=== PATIENT | female | born 1965 | race Two or more races ===

== ENCOUNTER 2017-03-04 13:09 | Emergency (ER) | payer OTHER ==
[~2017-03-04] VITALS: Ht 157.5 cm; Wt 73.5 kg
[~2017-03-04 13:09] MED LIST: DULO60CA59 PO; FLUT16SP17 NASAL; FLUT1BLS INHALATION; GABA-526 PO; GABA300C16 PO; HYDR-902 PO; HYDR25SU23 PR; LORA1TAB PO; OXYB5TAB7 PO; POLY17PO6 PO
[2017-03-04 13:24] VITALS: Ht 157.5 cm; Wt 73.5 kg
[2017-03-04] MEDS ORDERED: ONDANSETRON (ODT) 4 MG TAB ODT STA (13:51)
[2017-03-04] MEDS ORDERED: NICARDipine HCL 30 MG CAPSULE PO ONE (14:00)
[2017-03-04] MEDS ORDERED: HYDROCODONE/APAP (5/325) TAB PO ONE (14:00)
[2017-03-04 14:32] LABS: ADD UMIC NO; URINE BILIRUBIN (Dip) NEGATIVE (NEGATIVE); URINE BLOOD (Dip) NEGATIVE (NEGATIVE); URINE COLOR LT. YELLOW (YELLOW); URINE GLUCOSE (Dip) NEGATIVE (NEGATIVE); URINE KETONES (Dip) NEGATIVE (NEGATIVE); URINE LEUKOCYTE ESTERASE (Dip) NEGATIVE (NEGATIVE); URINE NITRITE (Dip) NEGATIVE (NEGATIVE); URINE TOTAL PROTEIN (Dip) NEGATIVE (NEGATIVE); URINE UROBILINOGEN (Dip) 0.2 E.U./dL (0.1-1.0)
--- NOTE | 2017-03-04 14:32 | RADRPT ---
PROCEDURE: CT Brain without contrast. CLINICAL INDICATION: Headaches. TECHNIQUE: A CT of the brain was performed on multidetector high-resolution CT scanner utilizing a xial sections from the skull base through the vertex without contrast. One or more of the following dose reduction techniques were used: Automated exposure control, Adjustment of the mA and/or kV acc ording to patient size, and/or use of iterative reconstruction technique. DOSE: CTDI = 44 mGy and the DLP = 630 mGy-cm. COMPARISON: None available FINDINGS: No acute intracranial hemorrhage, significant mass effect or midline shift. The cardoso-white different iation is grossly preserved. The ventricles are normal in size. Mild generalized volume loss. No significant opacification of the visualized paranasal sinuses or mastoids. IMPRESSION: No acute intracranial findings. Mild generalized volume loss. RPTAT: AA .Ziggy Longo MD, MD Date Time Electronically viewed and signed by .Ziggy Longo MD, MD on 03/04/2017 14:31 .T/
[2017-03-04] MEDS ORDERED: ONDANSETRON 4 MG INJ IV STA (15:29)
[2017-03-04] MEDS ORDERED: SOD CHLORIDE 0.9% 1,000 ML IV STA (15:29)
[2017-03-04 15:50] LABS: ADD SCAN DIFF NO
[2017-03-04 15:53] LABS: BASOPHIL # 0.1 10^3/ul (0.0-0.1); BASOPHILS % 0.7 % (0.0-2.0); EOSINOPHILS # 0.2 10^3/ul (0.0-0.5); EOSINOPHILS % 2.7 % (0.0-7.0); HEMOGLOBIN 14.2 g/dl (12.0-16.0); LYMPHOCYTES # 3.3 10^3/ul (0.8-2.9); LYMPHOCYTES % 47.1 % (15.0-51.0); MEAN CORPUSCULAR HEMOGLOBIN 30.1 pg (29.0-33.0); MEAN CORPUSCULAR HGB CONC 33.8 g/dl (32.0-37.0); MEAN CORPUSCULAR VOLUME 89.2 fl (82.0-101.0); MEAN PLATELET VOLUME 9.9 fl (7.4-10.4); MONOCYTE # 0.3 10^3/ul (0.3-0.9); MONOCYTES % 4.9 % (0.0-11.0); NEUTROPHIL # 3.1 10^3/ul (1.6-7.5); NEUTROPHILS % 44.5 % (39.0-77.0); PLATELET COUNT 250 10^3/UL (140-415); RED BLOOD COUNT 4.71 10^6/ul (4.20-5.40); RED CELL DISTRIBUTION WIDTH 12.7 % (11.5-14.5)
[2017-03-04 16:12] LABS: BILIRUBIN,INDIRECT 0.5 mg/dl (0-1.1); BILIRUBIN,TOTAL 0.5 mg/dl (0.2-1.3); CALCIUM 9.8 mg/dl (8.4-10.2); CREATININE 0.68 mg/dl (0.44-1.00); POTASSIUM 3.7 mmol/L (3.5-5.1); TOTAL PROTEIN 7.5 g/dl (6.1-8.1)
[2017-03-04] MEDS ORDERED: ONDA8TAB14 PO (16:40)
[2017-03-04] MEDS ORDERED: HYD25 PO (16:40)
--- NOTE | 2017-03-04 16:44 | ERD ---
ER Documentation Chief Complaint Date/Time DATE: 03/04/17 TIME: 16:41 Chief Complaint Complains of headache x 2 days HPI This 51-year-old female complains of a generalized headache for last 2 days. She is states that her blood pressures been high as well. She denies any visual changes, weakness, vomiting although she does have nausea. She denies any bowel or bladder incontinence or chest pain or shortness of breath. ROS All systems reviewed and are negative except as per history of present illness. Medications Home Meds Active Scripts Hydrochlorothiazide* (Hydrochlorothiazide*) 25 Mg Tab, 25 MG PO DAILY, #30 TAB Prov:LUIS FELIPE SCHULZ MD 03/04/17 Ondansetron (Ondansetron Odt) 8 Mg Tab.rapdis, 8 MG PO Q6H Y for NAUSEA AND/OR VOMITING, #8 TAB Prov:LUIS FELIPE SCHULZ MD 03/04/17 Hydrocortisone Acetate (Anusol-Hc) 25 Mg Supp.rect, 1 SUPP NM BID Y for HEMORROID PAIN/ITCHING, #20 SUPP.RECT Prov:ANIA HENSLEY DO 08/04/16 Hydrocodone/Acetaminophen ([place] 10-325 Tablet) 1 Each Tablet, 1 TAB PO Q6H Y for PAIN, #20 TAB Prov:ANIA HENSLEY DO 08/04/16 Polyethylene Glycol* (Miralax*) 17 Gm Powd.pack, 17 GM PO DAILY, #30 PACKET Prov:ANIA HENSLEY DO 08/04/16 Reported Medications Oxybutynin Chloride* (Ditropan*) 5 Mg Tab, 5 MG PO TID, TAB 08/04/16 Fluticasone Propionate* (Fluticasone Propionate* Nasal) 50 Mcg/Henry - 16 Gm Henry.susp, 1 SPRAY NASAL BID, #1 BOTTLE TO EACH NOSTRIL 08/04/16 Fluticasone/Vilanterol (Breo Ellipta 200-25 Mcg INH) 1 Each Blst.w.dev, 1 PUFF INHALATION DAILY, #1 INHALER 08/04/16 Lorazepam* (Lorazepam*) 1 Mg Tablet, 1 MG PO BID Y for ANXIETY for 30 Days, #45 TAB TAKE 0.5MG TAB BY MOUTH ONCE A DAY THEN 1MG TAB AT BEDTIME 08/04/16 Gabapentin* (Gabapentin*) 600 Mg Tablet, 1200 MG PO QHS, #180 TAB 08/04/16 Gabapentin* (Gabapentin*) 300 Mg Capsule, 300 MG PO DAILY AT NOON, #60 CAP 08/04/16 Duloxetine Hcl* (Duloxetine Hcl*) 60 Mg Capsule.dr, 60 MG PO DAILY, #30 CAP 08/04/16 Allergies Allergies: Coded Allergies: naproxen (Unverified Allergy, Unknown, 08/04/16) PMhx/Soc History of Surgery: Yes (HYSTERECTOMY, RT SHOULDER) Anesthesia Reaction: No Hx Neurological Disorder: Yes (SPINAL PROBLEMS) Hx Respiratory Disorders: No Hx Cardiac Disorders: Yes (HTN) Hx Psychiatric Problems: Yes (ANXIETY, DEPRESSION) Hx Miscellaneous Medical Probl: Yes (VAGINAL/RECTAL PROLAPSE) Hx Alcohol Use: No Hx Substance Use: No Hx Tobacco Use: No Smoking Status: Never smoker Physical Exam Vitals Vital Signs Date Time Temp Pulse Resp B/P Pulse Ox O2 Delivery O2 Flow Rate FiO2 03/04/17 15:25 98.0 72 18 116/64 97 Room Air 03/04/17 13:24 97.6 75 20 179/101 98 Physical Exam Const: [], [id number]. Head: Atraumatic Eyes: Normal Conjunctiva. Eyes are PERRLA and extraocular movements intact. ENT: Normal External Ears, Nose and Mouth. Neck: Full range of motion..~ No meningismus. Resp: Clear to auscultation bilaterally Cardio: Regular rate and rhythm, no murmurs Abd: Soft, non tender, non distended. Normal bowel sounds Skin: No petechiae or rashes Back: No midline or flank tenderness Ext: No cyanosis, or edema Neur: Awake and alert. Cranial nerves II through XII grossly intact. No appreciable focal neurologic deficits. Normal gait. Psych: Normal Mood and Affect Result Diagram: 03/04/17 1535 03/04/17 1535 Results 24 hrs Laboratory Tests Test 03/04/17 14:15 03/04/17 15:35 Urine Color LT. YELLOW Urine Clarity CLEAR Urine pH 7.0 Urine Specific [place] 1.010 Urine Ketones NEGATIVE Urine Nitrite NEGATIVE Urine Bilirubin NEGATIVE Urine Urobilinogen 0.2 E.U./dL Urine Leukocyte Esterase NEGATIVE Urine Hemoglobin NEGATIVE Urine Glucose NEGATIVE% Urine Total Protein NEGATIVE White Blood Count 7.010^3/ul Red Blood Count 4.7110^6/ul Hemoglobin 14.2g/dl Hematocrit 42.0% Mean Corpuscular Volume 89.2fl Mean Corpuscular Hemoglobin 30.1pg Mean Corpuscular Hemoglobin Concent 33.8g/dl Red Cell Distribution Width 12.7% Platelet Count 03161^3/UL Mean Platelet Volume 9.9fl Neutrophils % 44.5% Lymphocytes % 47.1% Monocytes % 4.9% Eosinophils % 2.7% Basophils % 0.7% Nucleated Red Blood Cells % 0.0/100WBC Neutrophils # 3.110^3/ul Lymphocytes # 3.310^3/ul Monocytes # 0.310^3/ul Eosinophils # 0.210^3/ul Basophils # 0.110^3/ul Nucleated Red Blood Cells # 0.010^3/ul Sodium Level 143mmol/L Potassium Level 3.7mmol/L Chloride Level 106mmol/L Carbon Dioxide Level 26mmol/L Anion Gap 15 Blood Urea Nitrogen 10mg/dl Creatinine 0.68mg/dl Glucose Level 103mg/dl Calcium Level 9.8mg/dl Total Bilirubin 0.5mg/dl Direct Bilirubin 0.00mg/dl Indirect Bilirubin 0.5mg/dl Aspartate Amino Transf (AST/SGOT) 20IU/L Alanine Aminotransferase (ALT/SGPT) 38IU/L Alkaline Phosphatase 72IU/L Total Protein 7.5g/dl Albumin 5.0g/dl Globulin 2.50g/dl Albumin/Globulin Ratio 2.00 Lipase 62U/L Current Medications Medications (Trade) Dose Ordered Sig/Ricardo Route PRN Reason Start Time Stop Time Status Last Admin Dose Admin Acetaminophen/ Hydrocodone Bitart ([place] (5/325)) 1 tab ONCE ONCE PO 03/04/17 14:00 03/04/17 14:01 DC 03/04/17 14:21 Ondansetron HCl (Zofran Odt) 8 mg ONCE STAT ODT 03/04/17 13:51 03/04/17 13:52 DC 03/04/17 14:21 Nicardipine HCl 30 mg 30 mg ONCE ONCE PO 03/04/17 14:00 03/04/17 14:01 DC 03/04/17 14:21 Sodium Chloride (NS) 1,000 ml @ 1,000 mls/hr Q1H STAT IV 03/04/17 15:29 03/04/17 16:28 DC 03/04/17 15:37 Ondansetron HCl (Zofran Inj) 4 mg ONCE STAT IV 03/04/17 15:29 03/04/17 15:30 DC 03/04/17 15:37 Procedures/MDM EKG: Rate/Rhythm: [Normal Sinus Rhythm] rate equals 67 QRS, ST, T-waves: [No changes consistent w/ acute ischemia] Impression: [No evidence of ischemia or arrhythmia]. Impression have a normal EKG CT brain was performed which was read as normal by the radiologist. Patient was given Cardene 30 mg of mouth for elevated blood pressure, she is also given [place] 5 mg and Zofran 8 mg of mouth.. Urine is negative. Patient had onset of dizziness and nausea while in the results waiting area. Patient was subsequently brought to the bed and IV was obtained. 1 L normal saline was given IV. CBC and CMP are normal. Repeat EKG shows no acute findings. Repeat blood pressure was lower without tachycardia. After observation and Zofran 4 mg IV patient felt much better and was able to ambulate was not ill-appearing. Patient presents with elevated blood pressure without signs of endorgan damage, and headache of uncertain etiology improved after observation and treatment. Patient was discharged home with addition of hydrochlorothiazide her blood pressure regimen. Patient is advised to follow-up with primary doctor this week return to the ER for new or worsening symptoms. The patient was stable with no new complaints during the ER course. Clinically, there is no current evidence to suggest meningitis, sepsis, acute abdomen, pneumonia, acute coronary syndrome, pulmonary embolism, or any other emergent condition appearing to require further evaluation or hospitalization. The patient should certainly return for any new or worsening symptoms per the aftercare instructions. They should otherwise follow-up with her primary care doctor for reevaluation this week. Departure Diagnosis: Primary Impression: Hypertension Hypertension type: essential hypertension Qualified Code: I10 - Essential hypertension Additional Impression: Headache Headache type: unspecified Headache chronicity pattern: acute headache Intractability: not intractable Qualified Code: R51 - Acute nonintractable headache, unspecified headache type Condition: Stable Patient Instructions: Self-Care for Headaches, High Blood Pressure ( Hypertension) Referrals: [facility] (PCP) Additional Instructions: Examinations normal today. We will start additional medicine for hypertension. Recheck with primary doctor this week or for new or worsening symptoms LUIS FELIPE SCHULZ MD Mar 04, 2017 16:44
[2017-03-04 17:03] VITALS: BP 122/65; PULSE 70; RESP 18; TEMP 98.2
== END 2017-03-04 17:04 | disposition home or self-care (01) ==
LOC: FTE 13:09
DX: I10 Essential (primary) hypertension (principal)
CPT/HCPCS: 36415; 70450; 80053; 81003; 83690; 85025; 96361; 96374; J2405; J7030; Z7502; Z7610